=== PATIENT | female | born 1985 | race Caucasian/White ===

== ENCOUNTER 2018-05-04 16:51 | Emergency (ER) | payer SELFPAY ==
[~2018-05-04] VITALS: Ht 157.5 cm; Wt 61.2 kg
[2018-05-04] MEDS ORDERED: ACETAMINOPHEN 325 MG TAB PO ONE (17:00)
[2018-05-04 17:27] LABS: CLARITY,URINE SL CLOUDY (CLEAR); COLOR,URINE YELLOW (YELLOW)
[2018-05-04 17:28] LABS: BILIRUBIN,URINE NEGATIVE (NEGATIVE); KETONES,URINE TRACE (NEGATIVE); LEUKOCYTE ESTERASE ,URINE TRACE (NEGATIVE); NITRITE,URINE POSITIVE (NEGATIVE); PROTEIN,URINE DIPSTICK NEGATIVE (NEGATIVE); URINE UROBILINOGEN 0.2 mg/dL (0.2 - 1)
[2018-05-04 17:39] LABS: BACTERIA,URINE MANY /HPF; EPITHELIAL CELLS,URINE MODERATE /LPF; MUCUS,URINE FEW (RARE); TRANSITIONAL EPI CELLS,URINE FEW
--- NOTE | 2018-05-04 19:39 | Diagnostic Imaging Report ---
EXAM: US OB [facility] 1 OR MORE FETUSES INDICATION: \S\post fall us for well being \[id number] \S\[id number] COMPARISON: None TECHNIQUE: Multiple transabdominal images of the uterus and fetus were obtained using gamboa-scale, color Doppler and M-mode. FINDINGS: LMP not available A1, ectopic 1, fetus 1 Type of Gestation: Real GA by LMP: Not available GA by current U/S: 26w 2d ISAAC 08/08/2018 Measurements: BPD 6.7 cm 27w 0d HC 24.9 cm 27w 0d AC 19.5 cm 24w 2d FL 5.0 cm 27w 0d Estimated Weight: 837.9 g, (1 lbs) 14 oz 17.2% Visualized Anatomy: Four chamber cardiac view Regular cardiac rhythm Stomach Kidneys Bladder movement No evidence of placental previa. There is no funneling of the internal os. size is appropriate for gestational age. Position: Cephalic Placental Location: Posterior Cervical Length: 3.3 cm Amniotic Fluid Index: 22 cm Heart Rate: 138 bpm IMPRESSION: Single living intrauterine without abnormality identified. Signed by: Dr. Sherita Teran M.D. on 05/04/2018 7:34 PM
[2018-05-04 20:01] VITALS: BP 106/67
== END 2018-05-04 20:12 | disposition home or self-care (01) ==
LOC: ER 16:51
DX: O26.92 Pregnancy related conditions, unspecified, second trimester (principal); R10.9 Unspecified abdominal pain; W01.0XXA Fall on same level from slipping, tripping and stumbling without subsequent striking against object, initial encounter
CPT/HCPCS: 36415; 76815; 81001; 84702; 99283